=== PATIENT | female | born 1995 | race Caucasian/White ===

== ENCOUNTER 2017-06-06 02:05 | Emergency (ER) | payer SELFPAY ==
[2017-06-06 02:25] VITALS: BP 123/70
[2017-06-06] MEDS ORDERED: ERYTHROMYCIN 0.5% OPH OINT 1 GM UNIT DOSE OU ONE (04:59)
--- NOTE | 2017-06-06 05:09 | ER Document Report ---
ED Eye Complaint - General Chief Complaint: Eye Problem Stated Complaint: RED EYES/DRAINAGE Time Seen by Provider: 06/06/17 04:48 Mode of Arrival: Ambulatory Information source: Patient Notes: 21-year-old presents to ED for red eyes with greenish drainage for about a week. She states she went to her primary doctor they gave her some antibiotics and some eyedrops and she finished these but the eyes have not gotten any better. She states she did not follow-up with her primary doctor or with an eye doctor. States she smokes a pack and a half a day. TRAVEL OUTSIDE OF THE [place] IN LAST 30 DAYS: No - HPI Onset: Last week Eye location: Bilateral Injury: No Quality of pain: Burning Severity: Mild Pain Level: 2 Safety glasses worn: No Contact lenses worn: No Associated symptoms: Burning, Pain, Redness, Matting - Related Data Allergies/Adverse Reactions: acetaminophen [From Tylenol] Adverse Reaction (Verified 05/13/16 04:48) Past Medical History - General Information source: Patient - Social History Smoking Status: Current Every Day Smoker Cigarette use (# per day): Yes - 1-1/2 packs per day Chew tobacco use (# tins/day): No Smoking Education Provided: Yes - Less than 2 minutes Frequency of alcohol use: None Drug Abuse: None Lives with: Parents Family History: Arthritis, Malignancy Patient has suicidal ideation: No Patient has homicidal ideation: No - Past Medical History Cardiac Medical History: Reports: None Pulmonary Medical History: Reports: None EENT Medical History: Reports: None Neurological Medical History: Reports: Hx Seizures Endocrine Medical History: Reports: None Renal/ Medical History: Reports: Hx Pelvic Inflammatory Disease Malignancy Medical History: Reports: None GI Medical History: Reports: Hx Hepatitis - C Musculoskeltal Medical History: Reports None Skin Medical History: Reports None Psychiatric Medical History: Reports: Hx Depression Traumatic Medical History: Reports: None Infectious Medical History: Reports: Hx Hepatitis - C Surgical Hx: Negative Past Surgical History: Reports: None - Immunizations Immunizations up to date: No Hx Diphtheria, Pertussis, Tetanus Vaccination: No Review of Systems - Review of Systems Constitutional: No symptoms reported EENT: Eye pain, Eye discharge Cardiovascular: No symptoms reported Respiratory: No symptoms reported Gastrointestinal: No symptoms reported Genitourinary: No symptoms reported Female Genitourinary: No symptoms reported Musculoskeletal: No symptoms reported Skin: No symptoms reported Hematologic/Lymphatic: No symptoms reported Neurological/Psychological: No symptoms reported Physical Exam - Vital signs Vitals: Temp Pulse Resp BP Pulse Ox 97.6 F 76 18 123/70 99 06/06/17 02:06/06/17 02:06/06/17 02:06/06/17 02:06/06/17 02:24 Interpretation: Normal - General General appearance: Appears well, Alert - HEENT Head: Normocephalic, Atraumatic Eyes: Normal Conjunctiva: Injected, Purulent discharge Cornea: Normal. No: Flourescein stain uptake Extraocular movements intact: Yes Eyelashes: Matted Pupils: PERRL Ears: Normal External canal: Normal Tympanic membrane: Normal Sinus: Normal Nasal: Normal Mouth/Lips: Normal Mucous membranes: Normal Pharynx: Normal Neck: Normal - Respiratory Respiratory status: No respiratory distress Chest status: Nontender Breath sounds: Normal Chest palpation: Normal - Cardiovascular Rhythm: Regular Heart sounds: Normal auscultation Murmur: No - Abdominal Inspection: Normal Distension: No distension Bowel sounds: Normal Tenderness: Nontender Organomegaly: No organomegaly - Back Back: Normal, Nontender - Extremities General upper extremity: Normal inspection, Nontender, Normal color, Normal ROM , Normal temperature General lower extremity: Normal inspection, Nontender, Normal color, Normal ROM , Normal temperature, Normal weight bearing. No: Cee's sign - Neurological Neuro grossly intact: Yes Cognition: Normal Orientation: AAOx4 [place] Coma Scale Eye Opening: Spontaneous [place] Coma Scale Verbal: Oriented [place] Coma Scale Motor: Obeys Commands [place] Coma Scale Total: 15 Speech: Normal Motor strength normal: LUE, RUE, LLE, RLE Sensory: Normal - Psychological Associated symptoms: Normal affect, Normal mood - Skin Skin Temperature: Warm Skin Moisture: Dry Skin Color: Normal Course - Vital Signs Vital signs: Temp Pulse Resp BP Pulse Ox 97.6 F 76 18 123/70 99 06/06/17 02:06/06/17 02:06/06/17 02:06/06/17 02:06/06/17 02:24 Discharge - Discharge Clinical Impression: Acute conjunctivitis, bilateral Qualifiers: Acute conjunctivitis type: unspecified Qualified Code(s): H10.33 - Unspecified acute conjunctivitis, bilateral Condition: Stable Disposition: HOME, SELF-CARE Additional Instructions: CONJUNCTIVITIS: You have an infection in your eye, commonly known as "pink eye." Conjunctivitis causes redness, mild discomfort, itching, and mattering on the eyelids. It is very contagious, so you must be careful to wash your hands after touching your face so you don't pass the infection on to others. Conjunctivitis is caused by both viruses and bacteria. It usually responds quickly to treatment with antibiotic drops. These should be placed in the eye as prescribed (usually every three to four hours while you're awake). If you wear contact lenses, don't put them in your eyes until the infection is cleared and you are no longer using the drops (unless your doctor advises you otherwise). Should you develop increasing eye pain, severe swelling, decreased vision, or fail to improve as expected, please return for re-examination. Erythromycin You have been prescribed an antibiotic of the erythromycin class. This is an ointment that needs to go into both eyes every 3 hours while awake for the next 6 days. Please be sure to use this ointment as prescribed every 3 hours while awake. Please follow-up with the respiratory therapy technician or eye doctor on Wednesday. ANTIBIOTIC THERAPY: You have been given an antibiotic prescription. It's important that you take all the medication, unless instructed otherwise by your physician. Failure to complete the entire course can result in relapse of your condition. Common side effects of antibiotics include nausea, intestinal cramping, or diarrhea. Women may develop vaginal yeast infections, and babies can get yeast (thrush) in the mouth following the use of antibiotics. Contact your physician if you develop significant side effects from this medication. Allergy to this antibiotic can result in hives, wheezing, faintness, or itching. If symptoms of allergy occur, stop the medication and call the doctor. FOLLOW-UP CARE: If you have been referred to a physician for follow-up care, call the physician s office for an appointment as you were instructed or within the next two days. If you experience worsening or a significant change in your symptoms, notify the physician immediately or return to the Emergency Department at any time for re-evaluation. Prescriptions: Erythromycin Base [E-Mycin 0.5% Oph Oint 1 gm Unit Dose] 1 applic BTH_EYE Q3HWA 6 Days Referrals: LILIANA JONES PA-C [Primary Care Provider] - Follow up as needed
== END 2017-06-06 05:00 | disposition home or self-care (01) ==
LOC: ER 02:05
DX: H10.33 Unspecified acute conjunctivitis, bilateral (principal); F17.210 Nicotine dependence, cigarettes, uncomplicated; Z71.6 Tobacco abuse counseling
CPT/HCPCS: 99282

== ENCOUNTER 2017-08-13 13:19 | Emergency (ER) | payer OTHER ==
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
[2017-08-13] MEDS ORDERED: DIPH/PERTUSS(ACELL)/TETANUS VAC/PF 0.5 ML SYR (>=10YO) IM ONE (13:30)
[2017-08-13 13:48] LABS: HEMATOCRIT 43.1 % (36.0-47.0); HEMOGLOBIN 14.4 g/dL (12.0-15.5); HGB HCT DIFFERENCE 0.1; MEAN CORPUSCULAR HEMOGLOBIN 28.2 pg (27.0-33.4); MEAN CORPUSCULAR HGB CONC 33.3 g/dL (32.0-36.0); MEAN CORPUSCULAR VOLUME 85 fl (80-97); RED BLOOD COUNT 5.09 10^6/uL (3.72-5.28); RED CELL DISTRIBUTION WIDTH 13.1 % (11.5-14.0)
[2017-08-13 13:51] LABS: PROTHROMBIN TIME 13.8 SEC (11.4-15.4)
[2017-08-13 13:52] LABS: WHITE BLOOD COUNT 31.2 10^3/uL (4.0-10.5)
[2017-08-13 14:01] LABS: ALANINE AMINOTRANSFERASE 38 U/L (9-52); ALBUMIN 4.3 g/dL (3.5-5.0); ALKALINE PHOSPHATASE 105 U/L (38-126); ANION GAP 11 (5-19); ASPARTATE AMINO TRANSFERASE 86 U/L (14-36); BILIRUBIN,DIRECT 0.4 mg/dL (0.0-0.4); BLOOD UREA NITROGEN 8 mg/dL (7-20); CALCIUM 10.4 mg/dL (8.4-10.2); CARBON DIOXIDE 21 mmol/L (22-30); CHLORIDE 109 mmol/L (98-107); CREATININE RESULT 0.73 mg/dL (0.52-1.25); GLUCOSE 142 mg/dL (75-110); POTASSIUM 3.9 mmol/L (3.6-5.0); SODIUM 141.2 mmol/L (137-145); TOTAL PROTEIN 7.6 g/dL (6.3-8.2)
[2017-08-13 14:02] LABS: ALCOHOL < 10 mg/dL (NONE DETECTED)
[2017-08-13 14:12] LABS: BAND NEUTROPHILS % (MANUAL) 2 % (3-5); BASOPHILS % (MANUAL) 0 % (0-2); EOSINOPHILS % (MANUAL) 0 % (0-6); LYMPHOCYTES % (MANUAL) 14 % (13-45); RBC MORPHOLOGY COMMENT NORMO-CYTIC/CHROMIC; TOTAL CELLS COUNTED 100; TOXIC VACUOLATION PRESENT
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
[2017-08-13] MEDS ORDERED: HYDROMORPHONE HCL INJ/PF 2 MG/ML AMPULE IV ONE ×2 (14:49→15:26)
[2017-08-13 16:10] VITALS: BP 107/72
[2017-08-16 14:12] LABS: PATH REVIEW PATHOLOGIST REVIEWED
== END 2017-08-13 16:22 | disposition short-term general hospital (02) ==
LOC: ER 13:19
DX: S32.020A Wedge compression fracture of second lumbar vertebra, initial encounter for closed fracture (principal); S32.10XA Unspecified fracture of sacrum, initial encounter for closed fracture; S22.069A Unspecified fracture of T7-T8 vertebra, initial encounter for closed fracture; S22.079A Unspecified fracture of T9-T10 vertebra, initial encounter for closed fracture; S51.812A Laceration without foreign body of left forearm, initial encounter; S61.412A Laceration without foreign body of left hand, initial encounter; S91.116A Laceration without foreign body of unspecified lesser toe(s) without damage to nail, initial encounter; S41.111A Laceration without foreign body of right upper arm, initial encounter; S71.112A Laceration without foreign body, left thigh, initial encounter; S81.812A Laceration without foreign body, left lower leg, initial encounter; S30.811A Abrasion of abdominal wall, initial encounter; S50.311A Abrasion of right elbow, initial encounter; F10.129 Alcohol abuse with intoxication, unspecified; F19.90 Other psychoactive substance use, unspecified, uncomplicated; V89.0XXA Person injured in unspecified motor-vehicle accident, nontraffic, initial encounter; Z88.6 Allergy status to analgesic agent; Z23 Encounter for immunization
CPT/HCPCS: 96376; 99285; 90471; 96374; 36415; 80307; 84703; 85025; 85610; 80053; 73630; 73130; 70450; 71260; 72125; 74177; 90715; J1170

== ENCOUNTER 2017-08-22 07:59 | Inpatient (IN) | payer OTHER ==
[2017-08-22] MEDS ORDERED: DAPTOMYCIN INJ 500 MG VIAL IV ONE (10:47)
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
[2017-08-22] MEDS: OXYCODONE HCL IR 5 MG TABLET PO PRN ×3 (11:59→22:09)
[2017-08-22] MEDS ORDERED: INFLUENZA ADLT QUAD (36MOS+) 2017-18 VAC 0.5 ML SYR IM PRN (14:16)
[2017-08-22] MEDS ORDERED: NICOTINE 21 MG/24 HR PATCH.TD24 TD ONE (15:00)
[2017-08-22] MEDS: METHADONE HCL 10 MG TABLET PO SCH ×2 (15:03→22:09)
[2017-08-22] MEDS ORDERED: ENOXAPARIN SODIUM INJ 40 MG/0.4 ML DISP.SYRIN SUBCUT ONE (15:30)
[2017-08-22 16:14] LABS: CREATININE RESULT 0.52 mg/dL (0.52-1.25)
[2017-08-22] MEDS: DAPTOMYCIN 300 MG in NORMAL SALINE 50 ML IV SCH (17:13)
[2017-08-23] MEDS: OXYCODONE HCL IR 5 MG TABLET PO PRN ×5 (05:27→21:49)
[2017-08-23] MEDS: METHADONE HCL 10 MG TABLET PO SCH ×3 (05:27→21:49)
[2017-08-23 07:46] LABS: ABSOLUTE BASOPHILS # (AUTO) 0.1 10^3/uL (0.0-0.2); ABSOLUTE EOSINOPHILS # (AUTO) 0.3 10^3/uL (0.0-0.6); ABSOLUTE LYMPHOCYTES (AUTO) 2.8 10^3/uL (0.5-4.7); ABSOLUTE MONOCYTES (AUTO) 0.5 10^3/uL (0.1-1.4); BASOPHILS % (AUTO) 0.8 % (0-2); EOSINOPHILS % (AUTO) 3.4 % (0-6); HEMATOCRIT 28.3 % (36.0-47.0); HEMOGLOBIN 9.5 g/dL (12.0-15.5); HGB HCT DIFFERENCE 0.2; LYMPHOCYTES % (AUTO) 32.3 % (13-45); MEAN CORPUSCULAR HEMOGLOBIN 28.4 pg (27.0-33.4); MEAN CORPUSCULAR HGB CONC 33.7 g/dL (32.0-36.0); MEAN CORPUSCULAR VOLUME 84 fl (80-97); RED BLOOD COUNT 3.36 10^6/uL (3.72-5.28); RED CELL DISTRIBUTION WIDTH 12.8 % (11.5-14.0); SEGMENTED NEUTROPHILS % (AUTO) 57.5 % (42-78); WHITE BLOOD COUNT 8.7 10^3/uL (4.0-10.5)
[2017-08-23 08:30] LABS: ALANINE AMINOTRANSFERASE 21 U/L (9-52); ALBUMIN 3.2 g/dL (3.5-5.0); ALKALINE PHOSPHATASE 83 U/L (38-126); ANION GAP 10 (5-19); ASPARTATE AMINO TRANSFERASE 16 U/L (14-36); BILIRUBIN,DIRECT 0.3 mg/dL (0.0-0.4); BILIRUBIN,TOTAL 0.5 mg/dL (0.2-1.3); BLOOD UREA NITROGEN 10 mg/dL (7-20); CALCIUM 9.2 mg/dL (8.4-10.2); CARBON DIOXIDE 28 mmol/L (22-30); CHLORIDE 100 mmol/L (98-107); CREATININE RESULT 0.54 mg/dL (0.52-1.25); GLUCOSE 100 mg/dL (75-110); MAGNESIUM 1.9 mg/dL (1.6-2.3); PHOSPHORUS 5.5 mg/dL (2.5-4.5); POTASSIUM 4.6 mmol/L (3.6-5.0); SODIUM 138.3 mmol/L (137-145); TOTAL PROTEIN 6.4 g/dL (6.3-8.2)
[2017-08-23] MEDS: NICOTINE 21 MG/24 HR PATCH.TD24 TD SCH (10:01)
[2017-08-23] MEDS: ENOXAPARIN SODIUM INJ 40 MG/0.4 ML DISP.SYRIN SUBCUT SCH (10:01)
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
[2017-08-23] MEDS: DAPTOMYCIN 300 MG in NORMAL SALINE 50 ML IV SCH (15:49)
[2017-08-24] MEDS: OXYCODONE HCL IR 5 MG TABLET PO PRN ×6 (01:23→21:48)
[2017-08-24 05:11] LABS: ABSOLUTE BASOPHILS # (AUTO) 0.1 10^3/uL (0.0-0.2); ABSOLUTE EOSINOPHILS # (AUTO) 0.4 10^3/uL (0.0-0.6); ABSOLUTE LYMPHOCYTES (AUTO) 3.4 10^3/uL (0.5-4.7); ABSOLUTE MONOCYTES (AUTO) 0.7 10^3/uL (0.1-1.4); BASOPHILS % (AUTO) 0.6 % (0-2); HEMATOCRIT 29.6 % (36.0-47.0); HEMOGLOBIN 10.2 g/dL (12.0-15.5); LYMPHOCYTES % (AUTO) 32.1 % (13-45); MEAN CORPUSCULAR HEMOGLOBIN 29.1 pg (27.0-33.4); MEAN CORPUSCULAR HGB CONC 34.4 g/dL (32.0-36.0); MEAN CORPUSCULAR VOLUME 84 fl (80-97); MONOCYTES % (AUTO) 6.9 % (3-13); RED CELL DISTRIBUTION WIDTH 12.8 % (11.5-14.0); SEGMENTED NEUTROPHILS % (AUTO) 56.4 % (42-78); WHITE BLOOD COUNT 10.6 10^3/uL (4.0-10.5)
[2017-08-24 05:22] LABS: ANION GAP 8 (5-19); BLOOD UREA NITROGEN 12 mg/dL (7-20); CALCIUM 9.4 mg/dL (8.4-10.2); CARBON DIOXIDE 33 mmol/L (22-30); CHLORIDE 100 mmol/L (98-107); CREATINE KINASE 40 U/L (30-135); CREATININE RESULT 0.62 mg/dL (0.52-1.25); GLUCOSE 91 mg/dL (75-110); POTASSIUM 4.4 mmol/L (3.6-5.0); SODIUM 141.1 mmol/L (137-145)
[2017-08-24] MEDS: METHADONE HCL 10 MG TABLET PO SCH ×3 (05:28→21:48)
[2017-08-24] MEDS: ENOXAPARIN SODIUM INJ 40 MG/0.4 ML DISP.SYRIN SUBCUT SCH (09:48)
[2017-08-24] MEDS: NICOTINE 21 MG/24 HR PATCH.TD24 TD SCH (09:48)
[2017-08-24] MEDS: DAPTOMYCIN 300 MG in NORMAL SALINE 50 ML IV SCH (16:52)
[2017-08-24] MEDS: CYCLOBENZAPRINE HCL 10 MG TABLET PO PRN (16:53)
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
[2017-08-25] MEDS: OXYCODONE HCL IR 5 MG TABLET PO PRN ×5 (06:06→21:56)
[2017-08-25] MEDS: METHADONE HCL 10 MG TABLET PO SCH ×3 (06:07→21:55)
[2017-08-25] MEDS: ENOXAPARIN SODIUM INJ 40 MG/0.4 ML DISP.SYRIN SUBCUT SCH (10:00)
[2017-08-25] MEDS: NICOTINE 21 MG/24 HR PATCH.TD24 TD SCH (10:00)
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
[2017-08-25] MEDS: CYCLOBENZAPRINE HCL 10 MG TABLET PO PRN ×2 (13:55→21:56)
[2017-08-25] MEDS: DAPTOMYCIN 300 MG in NORMAL SALINE 50 ML IV SCH (16:27)
[2017-08-26] MEDS: METHADONE HCL 10 MG TABLET PO SCH ×3 (06:02→22:24)
[2017-08-26] MEDS: CYCLOBENZAPRINE HCL 10 MG TABLET PO PRN ×3 (06:02→22:23)
[2017-08-26] MEDS: OXYCODONE HCL IR 5 MG TABLET PO PRN ×4 (06:02→22:22)
[2017-08-26] MEDS: NICOTINE 21 MG/24 HR PATCH.TD24 TD SCH (09:47)
[2017-08-26] MEDS: ENOXAPARIN SODIUM INJ 40 MG/0.4 ML DISP.SYRIN SUBCUT SCH (09:48)
--- NOTE | 2017-08-26 09:52 | RADIOLOGY REPORT (SQ) ---
EXAM DESCRIPTION: PICC INSERTION; FLUORO/CV PLACEMENT; U/S GUIDE FOR VASCULAR ACCESS COMPLETED DATE/TIME: 08/26/2017 9:32 am REASON FOR STUDY: IV drug user in need of 4 weeks antibiotics; IV ABX; IV ACCESS COMPARISON: CT chest 08/13/2017 FLUOROSCOPY TIME: Fluoro time 25 seconds 1 ultrasound and 1 digital chest images saved to PACS. TECHNIQUE: Fluoroscopic and ultrasound guided PICC placement. LIMITATIONS: None. PROCEDURE: After written consent and assessment were obtained, the patient was brought into the fluo roscopy room and place supine on the table. Ultrasound was used on the patient's left arm for PICC a ccess. The left arm was prepped and draped in a sterile fashion along with the ultrasound probe. The entry site was anesthetized with 1% lidocaine. A 21 gauge 7 cm needle was advanced through the skin a nd into the basilic vein under live ultrasound guidance. An ultrasound image was saved to PACS confi rming access site. A .018 guide wire was then inserted through the needle and into the venous system . The needle was the removed and an 11 blade scalpel was used to make a 1cm skin incision. A 5 fr pe el-away sheath was advanced over the wire and into the venous system. A measurement was then made usi ng the existing wire and live fluoroscopic guidance. The wire was then removed and the trimmed. The P ICC was advanced through the peel-away sheath and into the venous system. The peel-away sheath was re moved and the catheter was adhered to the patients arm with a stat lock. The catheter was then aspira vidhya and flushed and a sterile bandage was placed over the access site. A fluoroscopic spot image was saved to PACS confirming the catheter tip within the superior vena cava. IMPRESSION: SUCCESSFUL PLACEMENT OF A 5 FR DUAL LUMEN 38 CM PICC IN THE LEFT BASILIC VEIN. COMMENT: Patient medication list reviewed: Yes- Quality ID# [id number]:Eligible professional attests to doc umenting in the medical record they obtained, updated, or reviewed the patient's current medications. . Quality ID 145: Final reports for procedures using fluoroscopy that document radiation exposure joleen briana, or exposure time and number of fluorographic images (if radiation exposure indices are not avail able) Quality ID #76: The patient was prepped and draped using maximum sterile barrier technique including cap, mask, sterile gown, sterile gloves, a large sterile sheet, hand hygiene, and 2% Chlorhexidine fo r cutaneous antisepsis. When ultrasound is used, sterile ultrasound techniques are followed requiring sterile gel and sterile probes. TECHNICAL DOCUMENTATION: JOB ID: [id number] [employer]- All Rights Reserved
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
[2017-08-26] MEDS: DAPTOMYCIN 300 MG in NORMAL SALINE 50 ML IV SCH (17:15)
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
[2017-08-26] MEDS: NORMAL SALINE 10 ML SDV (SCHEDULED) IV SCH (22:26)
[2017-08-27] MEDS: METHADONE HCL 10 MG TABLET PO SCH ×3 (06:28→21:16)
[2017-08-27] MEDS: OXYCODONE HCL IR 5 MG TABLET PO PRN ×5 (06:29→22:03)
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
[2017-08-27 09:11] LABS: ABSOLUTE EOSINOPHILS # (AUTO) 0.1 10^3/uL (0.0-0.6); ABSOLUTE LYMPHOCYTES (AUTO) 1.8 10^3/uL (0.5-4.7); ABSOLUTE MONOCYTES (AUTO) 0.9 10^3/uL (0.1-1.4); ABSOLUTE NEUT (AUTO) 6.5 10^3/uL (1.7-8.2); BASOPHILS % (AUTO) 0.4 % (0-2); EOSINOPHILS % (AUTO) 1.2 % (0-6); HEMATOCRIT 26.3 % (36.0-47.0); HGB HCT DIFFERENCE 0.7; MEAN CORPUSCULAR HEMOGLOBIN 28.9 pg (27.0-33.4); MEAN CORPUSCULAR HGB CONC 34.3 g/dL (32.0-36.0); MEAN CORPUSCULAR VOLUME 84 fl (80-97); MONOCYTES % (AUTO) 9.6 % (3-13); RED BLOOD COUNT 3.12 10^6/uL (3.72-5.28); RED CELL DISTRIBUTION WIDTH 12.6 % (11.5-14.0); SEGMENTED NEUTROPHILS % (AUTO) 69.8 % (42-78); WHITE BLOOD COUNT 9.3 10^3/uL (4.0-10.5)
[2017-08-27] MEDS: ENOXAPARIN SODIUM INJ 40 MG/0.4 ML DISP.SYRIN SUBCUT SCH (10:42)
[2017-08-27] MEDS: NORMAL SALINE 10 ML SDV (SCHEDULED) IV SCH ×2 (10:42→21:16)
[2017-08-27] MEDS: CYCLOBENZAPRINE HCL 10 MG TABLET PO PRN ×2 (10:44→18:04)
[2017-08-27] MEDS: NICOTINE 21 MG/24 HR PATCH.TD24 TD SCH (11:51)
[2017-08-27] MEDS ORDERED: LORAZEPAM 1 MG TABLET PO ONE (11:57)
[2017-08-27 13:57] LABS: OTHER CRYSTALS NONE OBSERVED
[2017-08-27] MEDS ORDERED: DEXTROSE 50%-WATER 25 GM/50 ML DISP.SYRIN IV PRN ×2 (14:10)
[2017-08-27] MEDS ORDERED: DEXTROSE 40% GEL 15 GM TUBE PO PRN ×2 (14:10)
[2017-08-27] MEDS ORDERED: GLUCAGON,HUMAN RECOMB 1 MG INJ SUBCUT PRN (14:10)
[2017-08-27 14:16] LABS: FLUID TYPE SYNOVIAL
[2017-08-27 14:17] LABS: FLUID APPEARANCE TURBID
[2017-08-27 14:18] LABS: FLUID RBC AVERAGE 54.5; FLUID RBC DILUENT USED SALINE; FLUID RBC DILUTION FACTOR 20; FLUID RBC SIDE 1 59; FLUID RBC SIDE 2 50
[2017-08-27 14:19] LABS: TOTAL RBC SQUARES COUNTED FLD 225
[2017-08-27] MEDS: DAPTOMYCIN 300 MG in NORMAL SALINE 50 ML IV SCH (15:16)
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
--- NOTE | 2017-08-27 23:40 | Progress Note ---
Provider Note Provider Note: Patient seen and evaluated w/ PA. Continues to have elbow discomfort w/ motion. PE: Right elbow: Pain w/ terminal flexion and extension. Notable joint swelling w/ warmth. Tenderness to palpation along the joint line. no open wound. pain with pronation and supination. the patient makes a full and supple fist with flexion to the distal palmar crease. there is full active extension of all digits at the mcp and ip joints. epl and fpl are intact. extrinsic digital extensors and digital flexors are intact procedure note; today we discussed findings on physical examination treatment options. given the evidence of intra-articular effusion on radiographs and patient's refusal of mri i have recommended proceeding with joint aspiration. area was prepped with alcohol and 18-gauge needle was inserted into the soft spot between the lateral epicondyle, olecranon and radial head 10 cc of turbid appearing fluid was obtained and sent for cell count with differential, culture and sensitivity. A/P septic right elbow: findings demonstrate greater than 100,000 wbcs with neutrophil percent 96 are likely indicative of underlying septic joint. patient has been receiving appropriate antibiotics. given these findings on aspiration i feel patient will require operative intervention which included arthroscopic irrigation and debridement right elbow. risks and benefits of the surgical procedure have been explained to the patient including continued pain, stiffness, posttraumatic arthritis knee for future surgical intervention, neurovascular injury. patient verbalized understanding and consented for operative treatment.
[2017-08-28] MEDS: OXYCODONE HCL IR 5 MG TABLET PO PRN ×6 (02:09→22:23)
[2017-08-28] MEDS: CYCLOBENZAPRINE HCL 10 MG TABLET PO PRN ×3 (02:09→18:27)
[2017-08-28] MEDS: METHADONE HCL 10 MG TABLET PO SCH ×3 (06:20→22:23)
[2017-08-28] MEDS ORDERED: LIDOCAINE 2% INJ-PF (20 MG/ML) 10 ML AMPUL ONE (07:51)
[2017-08-28] MEDS ORDERED: DEXAMETHASONE SOD PHOSPHATE INJ 4 MG/1 ML VIAL ONE (07:51)
[2017-08-28] MEDS ORDERED: KETOROLAC TROMETHAMINE 60 MG/2 ML SDV ONE (07:51)
[2017-08-28] MEDS ORDERED: METOCLOPRAMIDE HCL INJ/PF 10 MG/2 ML SDV ONE (07:51)
[2017-08-28] MEDS ORDERED: ONDANSETRON HCL INJ/PF 4 MG/2 ML SDV ONE (07:51)
[2017-08-28] MEDS ORDERED: KETAMINE HCL INJ 500 MG/10 ML VIAL ONE (07:54)
[2017-08-28] MEDS ORDERED: FENTANYL CITRATE INJ/PF 100 MCG/2 ML AMPUL ONE (07:54)
[2017-08-28] MEDS ORDERED: EPHEDRINE SULFATE INJ 50 MG/1 ML AMPULE ONE (07:55)
[2017-08-28] MEDS ORDERED: MIDAZOLAM 2 MG/2 ML INJ ONE (07:55)
[2017-08-28] MEDS ORDERED: DEXMEDETOMIDINE INJ 80 MCG/20 ML VIAL IV ONE (07:55)
[2017-08-28] MEDS ORDERED: PROPOFOL INJ 200 MG/20 ML VIAL IV ONE (07:55)
[2017-08-28] MEDS ORDERED: BUPIVACAINE HCL 0.5 % INJ/PF 30 ML SDV ONE (08:25)
[2017-08-28] MEDS ORDERED: BACITRACIN INJ 50,000 UNIT VIAL ONE (08:25)
[2017-08-28] MEDS ORDERED: MORPHINE SULFATE 10 MG/ML INJ IV PRN (09:08)
[2017-08-28] MEDS ORDERED: DIPHENHYDRAMINE HCL 50 MG/ML VIAL IV PRN (09:08)
[2017-08-28] MEDS ORDERED: MEPERIDINE HCL/PF INJ 25 MG/1 ML DISP.SYRIN IV PRN (09:08)
[2017-08-28] MEDS ORDERED: PROMETHAZINE HCL INJ 25 MG/1 ML VIAL IV PRN ×2 (09:08)
[2017-08-28] MEDS ORDERED: ONDANSETRON HCL INJ/PF 4 MG/2 ML SDV IV PRN (09:08)
[2017-08-28] MEDS ORDERED: FENTANYL CITRATE INJ/PF 100 MCG/2 ML AMPUL IV PRN ×3 (09:08)
--- NOTE | 2017-08-28 09:27 | Operative Report ---
Operative Report DATE OF SURGERY: 08/28/17 PREOPERATIVE DIAGNOSIS: Right Elbow Septic Arthritis POSTOPERATIVE DIAGNOSIS: Right Elbow Septic Arthritis OPERATION: Arthroscopic Right Elbow Septic Arthritis SURGEON: CRISTIANA CAPUTO ANESTHESIA: GA COMPLICATIONS: None ESTIMATED BLOOD LOSS: Minimal PROCEDURE: Indication for Above Procedure: 21-year-old female with recent diagnosis of endocarditis. She was transferred to our hospital for IV antibiotics as per infectious disease at [facility]. Over the past few days she began having increasing pain in her right elbow. Subsequently aspiration was performed which demonstrated leukocytosis of the aspirate and given her history of IV drug abuse and endocarditis there is high concern for possible septic arthritis. After discussing treatment options with the patient I recommended proceeding with arthroscopic I&D of her right elbow. Risks and benefits were explained patient verbalized understanding consented for the procedure. Procedure In Detail: Patient was seen and evaluated in the preoperative holding area. The RIGHT upper extremity was initialized and marked. Patient currently receiving IV daptomycin for endocarditis. Patient was taken back to the operative room where transferred to the operative table and placed under general anesthesia. Once they were adequately anesthetized a nonsterile tourniquet was placed on the upper extremity patient was placed in the lateral decubitus position. Bilateral lower extremities were carefully padded and the nonoperative extremity padded as well. Cervical spine placed in a neutral position. A surgical team debriefing was performed ensuring all instrumentation was available, the surgical procedure was discussed with possible concerns reviewed. The upper extremity was prepped with ChloraPrep and draped in a sterile fashion. A timeout was done identifying correct patient, procedure and extremity everyone in attendance agree with this and verbalized no concerns. The extremity was elevated the tourniquet was inflated to 250 mmHg. Elbow was insufflated to the soft spot with 20 cc of saline. Medial portal was established 2 cm proximal to the medial epicondyle and 1 cm anterior to medial intramuscular septum. Blunt dissection was performed with a hemostat and the arthroscopic camera inserted into the elbow joint. Expiration demonstrated some mild fraying along the chondral surface. No chondral defect appreciated. Notable synovitis along the ulnohumeral joint. Spinal needle was then utilized to establish a lateral portal 2 cm proximal to the lateral epicondyle 1 cm anteriorly. Arthroscopic she was introduced into the joint and a partial synovectomy was performed. Chondroplasty was performed along the proximal to the radiocapitellar joint. No gross purulence was appreciated. I then placed the arthroscopic camera laterally. Inspected the capitellum there is no evidence of degenerative change on the trochlea or coronoid. 6 L of saline was utilized for irrigation. Once again the arthroscopic camera was placed medially and a 10 Rex drain was placed to the lateral portal. This was secured with 4-0 nylon suture. Portals were closed with interrupted 4-0 nylon. 30 cc of 0.5% Marcaine with epinephrine was injected for postoperative pain control. Sponge counts, instrument counts, needle counts counts were correct. Patient was then awoken from anesthesia. Transferred from the operating room table to the operating room stretcher. There was no intraoperative complications patient tolerated procedure well stable to PACU. Postoperative plan: Patient will continue on IV antibiotics for a total of 4 weeks.
[2017-08-28] MEDS: NICOTINE 21 MG/24 HR PATCH.TD24 TD SCH (10:54)
[2017-08-28] MEDS: ENOXAPARIN SODIUM INJ 40 MG/0.4 ML DISP.SYRIN SUBCUT SCH (10:56)
[2017-08-28] MEDS: NORMAL SALINE 10 ML SDV (SCHEDULED) IV SCH ×2 (10:56→22:25)
[2017-08-28] MEDS: DAPTOMYCIN 300 MG in NORMAL SALINE 50 ML IV SCH (15:11)
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
[2017-08-29] MEDS: OXYCODONE HCL IR 5 MG TABLET PO PRN ×5 (02:32→22:45)
[2017-08-29] MEDS: CYCLOBENZAPRINE HCL 10 MG TABLET PO PRN ×3 (02:32→11:12)
[2017-08-29] MEDS: METHADONE HCL 10 MG TABLET PO SCH ×2 (06:56→22:45)
--- NOTE | 2017-08-29 08:28 | PDOC PROGRESS REPORT ---
Subjective Progress Note for:: 08/29/17 Subjective:: Patient notes all of her pain continues to worsen. But notes the pain in the elbow has somewhat improved. Denies numbness or tingling. Denies fever chills or sweats. Physical Exam Vital Signs: Temp Pulse Resp BP Pulse Ox 97.9 F 76 14 113/53 L 98 08/29/17 07:41 08/29/17 07:41 08/29/17 07:41 08/29/17 07:41 08/29/17 07:41 Intake & Output 08/28/17 08/29/17 08/30/17 06:59 06:59 06:59 Intake Total 1696 9025 Output Total 5525 Balance 1696 3480 Weight 70.4 kg 73.4 kg Musculoskeletal exam: PRESENT: other - Right elbow: Dressing clean/dry/intact no erythema or drainage. Elbow range of motion 30-110 without discomfort. No significant swelling of the forearm appreciated. Full wrist flexion/ extension. Patient able to make full composite fist. EPL/FPL intact. Minimal drainage from the postoperative drain Results Laboratory Results: 08/27/17 08:50 08/24/17 04:39 08/23/17 11:37 Blood Blood Culture - Final NO GROWTH IN 5 DAYS 08/23/17 08:16 Blood Blood Culture - Final NO GROWTH IN 5 DAYS 08/24/17 04:39 Creatine Kinase 40 Impressions: Elbow X-Ray 08/26/17 00:00 IMPRESSION: No fracture is seen. However, there is a joint effusion. Recommend conservative measures and repeat imaging as clinically indicated. Guidance Fluoroscopy 08/26/17 00:00 IMPRESSION: SUCCESSFUL PLACEMENT OF A 5 FR DUAL LUMEN 38 CM PICC IN THE LEFT BASILIC VEIN. Interventional Vascular Procedure 08/26/17 00:00 IMPRESSION: SUCCESSFUL PLACEMENT OF A 5 FR DUAL LUMEN 38 CM PICC IN THE LEFT BASILIC VEIN. PICC Line Insertion 08/26/17 00:00 IMPRESSION: SUCCESSFUL PLACEMENT OF A 5 FR DUAL LUMEN 38 CM PICC IN THE LEFT BASILIC VEIN. Assessment & Plan - Diagnosis (1) Septic arthritis of elbow, right Qualifiers: Septic arthritis organism: due to unspecified organism Qualified Code(s): M00.9 - Pyogenic arthritis, unspecified Is this a current diagnosis for this admission?: Yes Plan: Patient is postop day #1 status post arthroscopic I&D right elbow. Her range of motion appears to have improved. At this point she will continue on her current IV antibiotic regimen and transition to p.o. antibiotics once her previous endocarditis IV antibiotic regimen is complete. We will proceed with dressing change on postop day #2.
[2017-08-29] MEDS: NORMAL SALINE 10 ML SDV (SCHEDULED) IV SCH ×2 (10:20→22:45)
[2017-08-29] MEDS: NICOTINE 21 MG/24 HR PATCH.TD24 TD SCH (10:20)
[2017-08-29] MEDS: ENOXAPARIN SODIUM INJ 40 MG/0.4 ML DISP.SYRIN SUBCUT SCH (11:08)
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
[2017-08-29] MEDS ORDERED: METHADONE HCL 10 MG TABLET PO ONE (15:00)
[2017-08-29] MEDS: DAPTOMYCIN 300 MG in NORMAL SALINE 50 ML IV SCH (16:38)
[2017-08-30] MEDS: OXYCODONE HCL IR 5 MG TABLET PO PRN ×4 (06:04→20:40)
[2017-08-30] MEDS: CYCLOBENZAPRINE HCL 10 MG TABLET PO PRN ×2 (06:05→15:35)
[2017-08-30] MEDS: METHADONE HCL 10 MG TABLET PO SCH ×3 (06:05→21:32)
--- NOTE | 2017-08-30 07:48 | PDOC PROGRESS REPORT ---
Subjective Subjective:: Patient notes all of her pain continues to worsen. But notes the pain in the elbow has continues to show improvement. Denies numbness or tingling. Denies fever chills or sweats. Physical Exam Vital Signs: Temp Pulse Resp BP Pulse Ox 97.8 F 82 14 120/53 L 99 08/29/17 23:38 08/29/17 23:38 08/29/17 23:38 08/29/17 23:38 08/29/17 23:38 Intake & Output 08/29/17 08/30/17 08/31/17 06:59 06:59 06:59 Intake Total 9025 1460 Output Total 5545 0 Balance 3480 1460 Weight 73.4 kg 73.6 kg Musculoskeletal exam: PRESENT: other - Right elbow: Dressing change today. No erythema and minimal drainage from the LVE drain. Mild swelling. Elbow range of motion 20-110 without discomfort. Patient able to make full composite fist. EPL/FPL intact. Results Laboratory Results: 08/27/17 08:50 08/24/17 04:39 08/24/17 04:39 Creatine Kinase 40 Impressions: Elbow X-Ray 08/26/17 00:00 IMPRESSION: No fracture is seen. However, there is a joint effusion. Recommend conservative measures and repeat imaging as clinically indicated. Guidance Fluoroscopy 08/26/17 00:00 IMPRESSION: SUCCESSFUL PLACEMENT OF A 5 FR DUAL LUMEN 38 CM PICC IN THE LEFT BASILIC VEIN. Interventional Vascular Procedure 08/26/17 00:00 IMPRESSION: SUCCESSFUL PLACEMENT OF A 5 FR DUAL LUMEN 38 CM PICC IN THE LEFT BASILIC VEIN. PICC Line Insertion 08/26/17 00:00 IMPRESSION: SUCCESSFUL PLACEMENT OF A 5 FR DUAL LUMEN 38 CM PICC IN THE LEFT BASILIC VEIN. Assessment & Plan - Diagnosis (1) Septic arthritis of elbow, right Qualifiers: Septic arthritis organism: due to unspecified organism Qualified Code(s): M00.9 - Pyogenic arthritis, unspecified Is this a current diagnosis for this admission?: Yes Plan: Patient is postop day #1 status post arthroscopic I&D right elbow. #1 continue daptomycin IV until 09/19/17 would transition to p.o. antibiotics as outpatient for an additional 3 weeks.
[2017-08-30] MEDS: NORMAL SALINE 10 ML SDV (AFTER EACH USE) IV PRN ×2 (10:54→15:28)
[2017-08-30] MEDS: ENOXAPARIN SODIUM INJ 40 MG/0.4 ML DISP.SYRIN SUBCUT SCH (10:55)
[2017-08-30] MEDS: NICOTINE 21 MG/24 HR PATCH.TD24 TD SCH (10:55)
[2017-08-30] MEDS: NORMAL SALINE 10 ML SDV (SCHEDULED) IV SCH ×2 (10:55→21:32)
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
[2017-08-30] MEDS: DAPTOMYCIN 300 MG in NORMAL SALINE 50 ML IV SCH (15:27)
[2017-08-30 16:29] LABS: HEMATOCRIT 28.5 % (36.0-47.0); HEMOGLOBIN 9.7 g/dL (12.0-15.5); HGB HCT DIFFERENCE 0.6; MEAN CORPUSCULAR HEMOGLOBIN 28.4 pg (27.0-33.4); MEAN CORPUSCULAR HGB CONC 33.9 g/dL (32.0-36.0); MEAN CORPUSCULAR VOLUME 84 fl (80-97); RED CELL DISTRIBUTION WIDTH 13.1 % (11.5-14.0); WHITE BLOOD COUNT 8.5 10^3/uL (4.0-10.5)
[2017-08-31] MEDS: METHADONE HCL 10 MG TABLET PO SCH ×3 (06:34→21:12)
[2017-08-31] MEDS: OXYCODONE HCL IR 5 MG TABLET PO PRN ×3 (08:02→19:35)
[2017-08-31] MEDS: ENOXAPARIN SODIUM INJ 40 MG/0.4 ML DISP.SYRIN SUBCUT SCH (10:22)
[2017-08-31] MEDS: CYCLOBENZAPRINE HCL 10 MG TABLET PO PRN ×2 (10:25→21:18)
[2017-08-31] MEDS: NICOTINE 21 MG/24 HR PATCH.TD24 TD SCH (10:26)
[2017-08-31] MEDS: NORMAL SALINE 10 ML SDV (SCHEDULED) IV SCH ×2 (10:26→21:15)
[2017-08-31] MEDS: DAPTOMYCIN 300 MG in NORMAL SALINE 50 ML IV SCH (15:03)
[2017-08-31] MEDS: NORMAL SALINE 10 ML SDV (AFTER EACH USE) IV PRN ×2 (15:45→21:15)
[2017-08-31] MEDS ORDERED: ALBUTEROL SULFATE HFA (90 MCG/PUFF) 200 PUFF/8.5 GM MDI IH PRN (16:19)
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
--- NOTE | 2017-08-31 18:12 | PDOC PROGRESS REPORT ---
Subjective Subjective:: Patient states pain is improving however still requiring pain medication. She has been somewhat frustrated with nursing staff in terms of this. She denies fever chills or sweats. She has been doing elbow range of motion. Physical Exam Vital Signs: Temp Pulse Resp BP Pulse Ox 97.9 F 73 12 122/52 L 100 08/31/17 15:48 08/31/17 15:48 08/31/17 15:48 08/31/17 15:48 08/31/17 15:48 Intake & Output 08/30/17 08/31/17 09/01/17 06:59 06:59 06:59 Intake Total 1460 1580 Output Total 0 Balance 1460 1580 Weight 73.6 kg 73.8 kg Musculoskeletal exam: PRESENT: other - Right elbow: Dressing clean/dry/intact no erythema or drainage. No tracking erythema. No sensory deficits. Full wrist range of motion. EPL/FPL intact. Elbow range of motion 15-120 Results Laboratory Results: 08/30/17 16:11 08/24/17 04:39 08/27/17 13:00 Elbow - Joint, Right (Surgical) Gram Stain - Final 08/27/17 13:00 Elbow - Joint, Right (Surgical) Body Fluid Culture - Final NO AEROBIC OR ANAEROBIC ORGANISMS RECOVERED 08/24/17 04:39 Creatine Kinase 40 Impressions: Elbow X-Ray 08/26/17 00:00 IMPRESSION: No fracture is seen. However, there is a joint effusion. Recommend conservative measures and repeat imaging as clinically indicated. Guidance Fluoroscopy 08/26/17 00:00 IMPRESSION: SUCCESSFUL PLACEMENT OF A 5 FR DUAL LUMEN 38 CM PICC IN THE LEFT BASILIC VEIN. Interventional Vascular Procedure 08/26/17 00:00 IMPRESSION: SUCCESSFUL PLACEMENT OF A 5 FR DUAL LUMEN 38 CM PICC IN THE LEFT BASILIC VEIN. PICC Line Insertion 08/26/17 00:00 IMPRESSION: SUCCESSFUL PLACEMENT OF A 5 FR DUAL LUMEN 38 CM PICC IN THE LEFT BASILIC VEIN. Assessment & Plan - Diagnosis (1) Septic arthritis of elbow, right Qualifiers: Septic arthritis organism: due to unspecified organism Qualified Code(s): M00.9 - Pyogenic arthritis, unspecified Is this a current diagnosis for this admission?: Yes Plan: status post arthroscopic I&D right elbow. #1 continue daptomycin IV until 09/19/17 would transition to p.o. antibiotics as outpatient for an additional 3 weeks.
[2017-09-01] MEDS: OXYCODONE HCL IR 5 MG TABLET PO PRN ×5 (00:10→20:35)
[2017-09-01] MEDS: METHADONE HCL 10 MG TABLET PO SCH ×3 (05:11→21:11)
[2017-09-01] MEDS: ENOXAPARIN SODIUM INJ 40 MG/0.4 ML DISP.SYRIN SUBCUT SCH (09:06)
[2017-09-01] MEDS: NICOTINE 21 MG/24 HR PATCH.TD24 TD SCH (09:13)
[2017-09-01] MEDS: NORMAL SALINE 10 ML SDV (SCHEDULED) IV SCH ×2 (09:13→21:15)
[2017-09-01] MEDS: CYCLOBENZAPRINE HCL 10 MG TABLET PO PRN ×2 (09:13→18:16)
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
[2017-09-01] MEDS: DAPTOMYCIN 300 MG in NORMAL SALINE 50 ML IV SCH (15:53)
[2017-09-01] MEDS: NORMAL SALINE 10 ML SDV (AFTER EACH USE) IV PRN (16:37)
[2017-09-02] MEDS: CYCLOBENZAPRINE HCL 10 MG TABLET PO PRN ×3 (02:07→21:08)
[2017-09-02] MEDS: OXYCODONE HCL IR 5 MG TABLET PO PRN ×5 (02:07→20:07)
[2017-09-02] MEDS: METHADONE HCL 10 MG TABLET PO SCH ×3 (06:08→21:08)
[2017-09-02 06:39] LABS: HEMATOCRIT 30.6 % (36.0-47.0); HEMOGLOBIN 10.2 g/dL (12.0-15.5); MEAN CORPUSCULAR HGB CONC 33.5 g/dL (32.0-36.0); MEAN CORPUSCULAR VOLUME 84 fl (80-97); RED BLOOD COUNT 3.65 10^6/uL (3.72-5.28); RED CELL DISTRIBUTION WIDTH 13.1 % (11.5-14.0); WHITE BLOOD COUNT 7.6 10^3/uL (4.0-10.5)
[2017-09-02 06:44] LABS: ALANINE AMINOTRANSFERASE 26 U/L (9-52); ALBUMIN 3.5 g/dL (3.5-5.0); ALKALINE PHOSPHATASE 109 U/L (38-126); ASPARTATE AMINO TRANSFERASE 16 U/L (14-36); BILIRUBIN,DIRECT 0.3 mg/dL (0.0-0.4); BILIRUBIN,TOTAL 0.3 mg/dL (0.2-1.3); TOTAL PROTEIN 7.5 g/dL (6.3-8.2)
[2017-09-02] MEDS: ENOXAPARIN SODIUM INJ 40 MG/0.4 ML DISP.SYRIN SUBCUT SCH (10:10)
[2017-09-02] MEDS: NORMAL SALINE 10 ML SDV (SCHEDULED) IV SCH ×2 (10:20→21:08)
[2017-09-02] MEDS: NICOTINE 21 MG/24 HR PATCH.TD24 TD SCH (10:21)
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
[2017-09-02] MEDS: DAPTOMYCIN 300 MG in NORMAL SALINE 50 ML IV SCH (15:22)
[2017-09-02] MEDS: NORMAL SALINE 10 ML SDV (AFTER EACH USE) IV PRN (16:05)
[2017-09-03] MEDS: OXYCODONE HCL IR 5 MG TABLET PO PRN ×4 (02:40→23:19)
[2017-09-03] MEDS: METHADONE HCL 10 MG TABLET PO SCH ×3 (06:06→21:07)
[2017-09-03] MEDS ORDERED: ALBUTEROL SULFATE HFA (90 MCG/PUFF) 200 PUFF/8.5 GM MDI IH PRN (09:16)
[2017-09-03] MEDS: ENOXAPARIN SODIUM INJ 40 MG/0.4 ML DISP.SYRIN SUBCUT SCH (10:14)
[2017-09-03] MEDS: NORMAL SALINE 10 ML SDV (SCHEDULED) IV SCH ×2 (10:14→21:07)
[2017-09-03] MEDS: NICOTINE 21 MG/24 HR PATCH.TD24 TD SCH (10:14)
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
[2017-09-03] MEDS: CYCLOBENZAPRINE HCL 10 MG TABLET PO PRN ×2 (12:40→21:07)
[2017-09-03] MEDS: DAPTOMYCIN 300 MG in NORMAL SALINE 50 ML IV SCH (16:42)
[2017-09-04] MEDS: CYCLOBENZAPRINE HCL 10 MG TABLET PO PRN ×3 (05:36→22:14)
[2017-09-04] MEDS: OXYCODONE HCL IR 5 MG TABLET PO PRN ×4 (05:36→20:50)
[2017-09-04] MEDS: METHADONE HCL 10 MG TABLET PO SCH ×3 (06:32→21:22)
[2017-09-04] MEDS ORDERED: SENNOSIDES/DOCUSATE 8.6-50 MG 1 EACH TABLET PO PRN (09:38)
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
[2017-09-04] MEDS: ENOXAPARIN SODIUM INJ 40 MG/0.4 ML DISP.SYRIN SUBCUT SCH (10:19)
[2017-09-04] MEDS: NICOTINE 21 MG/24 HR PATCH.TD24 TD SCH (10:19)
[2017-09-04] MEDS: NORMAL SALINE 10 ML SDV (SCHEDULED) IV SCH ×2 (10:19→21:22)
[2017-09-04] MEDS: DAPTOMYCIN 300 MG in NORMAL SALINE 50 ML IV SCH (15:58)
[2017-09-05] MEDS: OXYCODONE HCL IR 5 MG TABLET PO PRN ×6 (01:00→23:54)
[2017-09-05] MEDS: METHADONE HCL 10 MG TABLET PO SCH ×2 (05:26→14:45)
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
[2017-09-05] MEDS: CYCLOBENZAPRINE HCL 10 MG TABLET PO PRN ×2 (09:13→18:48)
[2017-09-05] MEDS: NICOTINE 21 MG/24 HR PATCH.TD24 TD SCH (09:14)
[2017-09-05] MEDS: NORMAL SALINE 10 ML SDV (SCHEDULED) IV SCH ×2 (09:25→22:43)
[2017-09-05] MEDS: ENOXAPARIN SODIUM INJ 40 MG/0.4 ML DISP.SYRIN SUBCUT SCH (09:25)
[2017-09-05] MEDS: DAPTOMYCIN 300 MG in NORMAL SALINE 50 ML IV SCH (16:41)
[2017-09-05] MEDS ORDERED: METHADONE HCL 10 MG TABLET PO ONE (22:45)
[2017-09-06] MEDS: CYCLOBENZAPRINE HCL 10 MG TABLET PO PRN ×2 (02:36→17:30)
[2017-09-06] MEDS: METHADONE HCL 10 MG TABLET PO SCH ×3 (05:49→21:04)
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
[2017-09-06] MEDS: NORMAL SALINE 10 ML SDV (SCHEDULED) IV SCH ×2 (08:56→21:05)
[2017-09-06] MEDS: NICOTINE 21 MG/24 HR PATCH.TD24 TD SCH (08:56)
[2017-09-06] MEDS: OXYCODONE HCL IR 5 MG TABLET PO PRN ×3 (08:57→20:37)
[2017-09-06] MEDS: ENOXAPARIN SODIUM INJ 40 MG/0.4 ML DISP.SYRIN SUBCUT SCH (10:31)
[2017-09-06] MEDS: DAPTOMYCIN 300 MG in NORMAL SALINE 50 ML IV SCH (16:41)
[2017-09-07] MEDS: METHADONE HCL 10 MG TABLET PO SCH ×3 (05:26→22:08)
[2017-09-07] MEDS: CYCLOBENZAPRINE HCL 10 MG TABLET PO PRN ×2 (05:26→15:11)
[2017-09-07] MEDS: OXYCODONE HCL IR 5 MG TABLET PO PRN ×3 (08:57→19:59)
[2017-09-07] MEDS: NICOTINE 21 MG/24 HR PATCH.TD24 TD SCH (09:57)
[2017-09-07] MEDS: ENOXAPARIN SODIUM INJ 40 MG/0.4 ML DISP.SYRIN SUBCUT SCH (13:07)
[2017-09-07] MEDS: NORMAL SALINE 10 ML SDV (SCHEDULED) IV SCH ×2 (13:20→22:09)
[2017-09-07] MEDS: DAPTOMYCIN 300 MG in NORMAL SALINE 50 ML IV SCH (15:10)
--- NOTE | 2017-09-07 16:57 | PDOC PROGRESS REPORT ---
Subjective Subjective:: Patient states pain is minimal but still has difficulty fully straightening her elbow. She denies fever chills or sweats. Physical Exam Vital Signs: Temp Pulse Resp BP Pulse Ox 97.9 F 56 L 12 135/79 H 95 09/07/17 15:18 09/07/17 15:18 09/07/17 15:18 09/07/17 15:18 09/07/17 15:18 Intake & Output 09/06/17 09/07/17 09/08/17 06:59 06:59 06:59 Intake Total 1688 1540 720 Output Total 900 Balance 788 1540 720 Weight 70.1 kg Musculoskeletal exam: PRESENT: other - Right elbow: Surgical incisions healed no evidence of erythema or drainage. Minimal residual swelling. No pain with elbow range of motion. Elbow range of motion 10-greater than 150 Results Laboratory Results: 09/02/17 06:00 08/24/17 04:39 08/24/17 04:39 Creatine Kinase 40 Impressions: Elbow X-Ray 08/26/17 00:00 IMPRESSION: No fracture is seen. However, there is a joint effusion. Recommend conservative measures and repeat imaging as clinically indicated. Guidance Fluoroscopy 08/26/17 00:00 IMPRESSION: SUCCESSFUL PLACEMENT OF A 5 FR DUAL LUMEN 38 CM PICC IN THE LEFT BASILIC VEIN. Interventional Vascular Procedure 08/26/17 00:00 IMPRESSION: SUCCESSFUL PLACEMENT OF A 5 FR DUAL LUMEN 38 CM PICC IN THE LEFT BASILIC VEIN. PICC Line Insertion 08/26/17 00:00 IMPRESSION: SUCCESSFUL PLACEMENT OF A 5 FR DUAL LUMEN 38 CM PICC IN THE LEFT BASILIC VEIN. Assessment & Plan - Diagnosis (1) Septic arthritis of elbow, right Qualifiers: Septic arthritis organism: due to unspecified organism Qualified Code(s): M00.9 - Pyogenic arthritis, unspecified Is this a current diagnosis for this admission?: Yes Plan: status post arthroscopic I&D right elbow. #1 continue daptomycin IV until 09/19/17 would transition to p.o. antibiotics as outpatient for an additional 3 weeks. #2 remove sutures today. #3 patient may be weightbearing as tolerated and continue elbow range of motion. Will follow up with me as needed.
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
[2017-09-08] MEDS: METHADONE HCL 10 MG TABLET PO SCH ×3 (05:42→21:22)
[2017-09-08] MEDS: CYCLOBENZAPRINE HCL 10 MG TABLET PO PRN ×3 (05:43→21:22)
[2017-09-08] MEDS: NICOTINE 21 MG/24 HR PATCH.TD24 TD SCH (11:06)
[2017-09-08] MEDS: OXYCODONE HCL IR 5 MG TABLET PO PRN ×3 (11:06→20:07)
[2017-09-08] MEDS: NORMAL SALINE 10 ML SDV (SCHEDULED) IV SCH ×2 (11:07→21:22)
[2017-09-08] MEDS: ENOXAPARIN SODIUM INJ 40 MG/0.4 ML DISP.SYRIN SUBCUT SCH (11:08)
[2017-09-08] MEDS: DAPTOMYCIN 300 MG in NORMAL SALINE 50 ML IV SCH (15:04)
[2017-09-09] MEDS: OXYCODONE HCL IR 5 MG TABLET PO PRN ×4 (04:23→20:22)
[2017-09-09] MEDS: CYCLOBENZAPRINE HCL 10 MG TABLET PO PRN ×3 (05:10→21:53)
[2017-09-09] MEDS: METHADONE HCL 10 MG TABLET PO SCH ×3 (05:10→21:45)
[2017-09-09] MEDS: NORMAL SALINE 10 ML SDV (SCHEDULED) IV SCH ×2 (10:59→21:47)
[2017-09-09] MEDS: ENOXAPARIN SODIUM INJ 40 MG/0.4 ML DISP.SYRIN SUBCUT SCH (11:00)
[2017-09-09] MEDS: NICOTINE 21 MG/24 HR PATCH.TD24 TD SCH (11:00)
[2017-09-09] MEDS ORDERED: LORAZEPAM 1 MG TABLET PO PRN (14:38)
[2017-09-09] MEDS: DAPTOMYCIN 300 MG in NORMAL SALINE 50 ML IV SCH (16:12)
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
[2017-09-10] MEDS: OXYCODONE HCL IR 5 MG TABLET PO PRN ×4 (01:06→20:45)
[2017-09-10] MEDS: METHADONE HCL 10 MG TABLET PO SCH ×3 (06:12→23:16)
[2017-09-10] MEDS: CYCLOBENZAPRINE HCL 10 MG TABLET PO PRN ×2 (09:14→17:16)
[2017-09-10] MEDS: ENOXAPARIN SODIUM INJ 40 MG/0.4 ML DISP.SYRIN SUBCUT SCH (09:14)
[2017-09-10] MEDS: NICOTINE 21 MG/24 HR PATCH.TD24 TD SCH (09:14)
[2017-09-10] MEDS: NORMAL SALINE 10 ML SDV (SCHEDULED) IV SCH ×2 (09:14→23:18)
[2017-09-10] MEDS: DAPTOMYCIN 300 MG in NORMAL SALINE 50 ML IV SCH (17:16)
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
[2017-09-11] MEDS: CYCLOBENZAPRINE HCL 10 MG TABLET PO PRN (05:45)
[2017-09-11] MEDS: METHADONE HCL 10 MG TABLET PO SCH ×3 (05:45→22:08)
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
[2017-09-11] MEDS ORDERED: METHOCARBAMOL 500 MG TABLET PO ONE (11:00)
[2017-09-11] MEDS: OXYCODONE-ACETAMINOPHEN 5-325 MG TABLET PO PRN ×2 (11:13→17:59)
[2017-09-11] MEDS: NORMAL SALINE 10 ML SDV (SCHEDULED) IV SCH ×2 (11:14→22:08)
[2017-09-11] MEDS: NICOTINE 21 MG/24 HR PATCH.TD24 TD SCH (11:14)
[2017-09-11] MEDS: ENOXAPARIN SODIUM INJ 40 MG/0.4 ML DISP.SYRIN SUBCUT SCH (11:15)
[2017-09-11] MEDS ORDERED: METHOCARBAMOL 500 MG TABLET PO SCH (14:00)
[2017-09-11] MEDS: METHOCARBAMOL 500 MG TABLET PO SCH (17:59)
[2017-09-11] MEDS: DAPTOMYCIN 300 MG in NORMAL SALINE 50 ML IV SCH (18:00)
--- NOTE | 2017-09-11 19:12 | RADIOLOGY REPORT (SQ) ---
EXAM DESCRIPTION: VENOUS UNILATERAL LOWER COMPLETED DATE/TIME: 09/11/2017 5:54 pm REASON FOR STUDY: r/o DVT right leg COMPARISON: None. TECHNIQUE: Dynamic and static herrera scale and color images acquired of the right leg venous system. S elected spectral images acquired with additional compression and augmentation maneuvers. The contrala teral common femoral vein and saphenofemoral junction were also imaged. Images stored on PACS. LIMITATIONS: None. FINDINGS: COMMON FEMORAL: Normal phasicity, compression and augmentation. No visualized echogenic ma terial on herrera scale. No defects on color images. FEMORAL: Normal compression and augmentation. No visualized echogenic material on herrera scale. No defe cts on color images. POPLITEAL: Normal compression, augmentation. No visualized echogenic material on herrera scale. No defec ts on color images. CALF VESSELS: Normal compression, augmentation. No visualized echogenic material on herrera scale. No de fects on color images. GSV and SSV: Normal compression, augmentation. No visualized echogenic material on herrera scale. No def ects on color images. ANY DEEP VENOUS INSUFFICIENCY: Not evaluated. ANY EVIDENCE OF POPLITEAL CYST: No. OTHER: No other significant finding. CONTRALATERAL COMMON FEMORAL VEIN AND SAPHENOFEMORAL JUNCTION: Normal phasicity, compression and augmentation. No visualized echogenic material on herrera scale. No de fects on color images. IMPRESSION: NO EVIDENCE OF DVT OR SVT IN THE RIGHT LEG. TECHNICAL DOCUMENTATION: JOB ID: [id number] [employer]- All Rights Reserved
[2017-09-12] MEDS: METHOCARBAMOL 500 MG TABLET PO SCH ×4 (00:20→17:03)
[2017-09-12] MEDS: KETOROLAC TROMETHAMINE 10 MG TABLET PO PRN ×3 (00:21→16:52)
[2017-09-12] MEDS: ACETAMINOPHEN 325 MG TABLET PO PRN (01:54)
[2017-09-12] MEDS: METHADONE HCL 10 MG TABLET PO SCH ×3 (07:20→22:15)
[2017-09-12] MEDS: ENOXAPARIN SODIUM INJ 40 MG/0.4 ML DISP.SYRIN SUBCUT SCH (09:31)
[2017-09-12] MEDS: NICOTINE 21 MG/24 HR PATCH.TD24 TD SCH (09:33)
[2017-09-12] MEDS: NORMAL SALINE 10 ML SDV (SCHEDULED) IV SCH ×2 (09:34→22:15)
[2017-09-12] MEDS: NORMAL SALINE 10 ML SDV (AFTER EACH USE) IV PRN ×2 (09:34→16:20)
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
[2017-09-12] MEDS: DAPTOMYCIN 300 MG in NORMAL SALINE 50 ML IV SCH (15:15)
[2017-09-13] MEDS: KETOROLAC TROMETHAMINE 10 MG TABLET PO PRN ×3 (00:25→19:10)
[2017-09-13] MEDS: METHOCARBAMOL 500 MG TABLET PO SCH ×4 (00:25→19:10)
[2017-09-13] MEDS: ACETAMINOPHEN 325 MG TABLET PO PRN ×5 (01:26→22:57)
[2017-09-13] MEDS: METHADONE HCL 10 MG TABLET PO SCH ×3 (06:25→22:50)
[2017-09-13 06:53] LABS: HEMATOCRIT 29.9 % (36.0-47.0); HEMOGLOBIN 10.1 g/dL (12.0-15.5); HGB HCT DIFFERENCE 0.4; MEAN CORPUSCULAR HEMOGLOBIN 28.5 pg (27.0-33.4); MEAN CORPUSCULAR HGB CONC 33.8 g/dL (32.0-36.0); MEAN CORPUSCULAR VOLUME 84 fl (80-97); RED BLOOD COUNT 3.55 10^6/uL (3.72-5.28); RED CELL DISTRIBUTION WIDTH 14.1 % (11.5-14.0); WHITE BLOOD COUNT 6.7 10^3/uL (4.0-10.5)
[2017-09-13 07:04] LABS: ANION GAP 8 (5-19); BLOOD UREA NITROGEN 16 mg/dL (7-20); CALCIUM 8.7 mg/dL (8.4-10.2); CARBON DIOXIDE 28 mmol/L (22-30); CHLORIDE 105 mmol/L (98-107); CREATININE RESULT 0.71 mg/dL (0.52-1.25); GLUCOSE 84 mg/dL (75-110); POTASSIUM 4.3 mmol/L (3.6-5.0)
[2017-09-13] MEDS: ENOXAPARIN SODIUM INJ 40 MG/0.4 ML DISP.SYRIN SUBCUT SCH (10:43)
[2017-09-13] MEDS: NORMAL SALINE 10 ML SDV (SCHEDULED) IV SCH ×2 (10:45→22:50)
[2017-09-13] MEDS: NICOTINE 21 MG/24 HR PATCH.TD24 TD SCH (10:47)
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
[2017-09-13] MEDS: DAPTOMYCIN 300 MG in NORMAL SALINE 50 ML IV SCH (16:56)
[2017-09-14] MEDS: METHOCARBAMOL 500 MG TABLET PO SCH ×2 (00:11→06:12)
[2017-09-14] MEDS: METHADONE HCL 10 MG TABLET PO SCH ×3 (06:10→21:24)
[2017-09-14] MEDS: ACETAMINOPHEN 325 MG TABLET PO PRN ×2 (06:12→09:45)
[2017-09-14] MEDS: NORMAL SALINE 10 ML SDV (SCHEDULED) IV SCH ×2 (09:44→21:25)
[2017-09-14] MEDS: ENOXAPARIN SODIUM INJ 40 MG/0.4 ML DISP.SYRIN SUBCUT SCH (09:45)
[2017-09-14] MEDS: NICOTINE 21 MG/24 HR PATCH.TD24 TD SCH (09:53)
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
[2017-09-14] MEDS: METHOCARBAMOL 750 MG TABLET PO SCH ×3 (15:48→21:24)
[2017-09-14] MEDS: DAPTOMYCIN 300 MG in NORMAL SALINE 50 ML IV SCH (15:49)
[2017-09-14 16:35] LABS: ALANINE AMINOTRANSFERASE 304 U/L (9-52); ALBUMIN 3.3 g/dL (3.5-5.0); ALKALINE PHOSPHATASE 270 U/L (38-126); ASPARTATE AMINO TRANSFERASE 211 U/L (14-36); BILIRUBIN,DIRECT 0.3 mg/dL (0.0-0.4); BILIRUBIN,TOTAL 0.3 mg/dL (0.2-1.3); TOTAL PROTEIN 6.6 g/dL (6.3-8.2)
[2017-09-14] MEDS: KETOROLAC TROMETHAMINE 10 MG TABLET PO PRN (21:24)
[2017-09-15] MEDS: KETOROLAC TROMETHAMINE 10 MG TABLET PO PRN ×3 (06:26→21:02)
[2017-09-15] MEDS: METHADONE HCL 10 MG TABLET PO SCH ×3 (06:26→21:02)
[2017-09-15] MEDS: NICOTINE 21 MG/24 HR PATCH.TD24 TD SCH (11:18)
[2017-09-15] MEDS: METHOCARBAMOL 750 MG TABLET PO SCH ×4 (11:24→21:02)
[2017-09-15] MEDS: NORMAL SALINE 10 ML SDV (SCHEDULED) IV SCH ×2 (11:24→21:03)
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
[2017-09-15] MEDS: LIDOCAINE 5% (700 MG) TRANSDERMAL ADH..PATCH TP SCH (12:23)
[2017-09-15] MEDS: ENOXAPARIN SODIUM INJ 40 MG/0.4 ML DISP.SYRIN SUBCUT SCH (12:24)
--- NOTE | 2017-09-15 13:48 | EKG REPORT ---
SEVERITY:- ABNORMAL ECG - SINUS RHYTHM NONSPECIFIC INTRAVENTRICULAR CONDUCTION DELAY PROBABLE LEFT VENTRICULAR HYPERTROPHY NONSPECIFIC ST-T CHANGES ANTERIOR WALL. : Confirmed by: Chance Clements MD 15-Sep-2017 13:48:27
[2017-09-15] MEDS: DAPTOMYCIN 300 MG in NORMAL SALINE 50 ML IV SCH (16:25)
[2017-09-16] MEDS: KETOROLAC TROMETHAMINE 10 MG TABLET PO PRN ×3 (03:06→17:29)
[2017-09-16] MEDS: METHADONE HCL 10 MG TABLET PO SCH ×3 (05:16→23:33)
[2017-09-16 06:33] LABS: PROTHROMBIN TIME 13.2 SEC (11.4-15.4)
[2017-09-16 06:42] LABS: ALANINE AMINOTRANSFERASE 242 U/L (9-52); ALBUMIN 3.1 g/dL (3.5-5.0); ALKALINE PHOSPHATASE 214 U/L (38-126); ANION GAP 11 (5-19); ASPARTATE AMINO TRANSFERASE 157 U/L (14-36); BILIRUBIN,DIRECT 0.3 mg/dL (0.0-0.4); BILIRUBIN,TOTAL 0.5 mg/dL (0.2-1.3); BLOOD UREA NITROGEN 7 mg/dL (7-20); CALCIUM 9.1 mg/dL (8.4-10.2); CARBON DIOXIDE 23 mmol/L (22-30); CHLORIDE 105 mmol/L (98-107); CREATININE RESULT 0.56 mg/dL (0.52-1.25); GLUCOSE 83 mg/dL (75-110); SODIUM 138.5 mmol/L (137-145); TOTAL PROTEIN 6.5 g/dL (6.3-8.2)
[2017-09-16] MEDS: METHOCARBAMOL 750 MG TABLET PO SCH ×4 (11:06→23:33)
[2017-09-16] MEDS: LIDOCAINE 5% (700 MG) TRANSDERMAL ADH..PATCH TP SCH (11:11)
[2017-09-16] MEDS: NORMAL SALINE 10 ML SDV (SCHEDULED) IV SCH ×2 (11:11→23:33)
[2017-09-16] MEDS: NICOTINE 21 MG/24 HR PATCH.TD24 TD SCH (11:12)
[2017-09-16] MEDS: ENOXAPARIN SODIUM INJ 40 MG/0.4 ML DISP.SYRIN SUBCUT SCH (11:12)
[2017-09-16] MEDS ORDERED: LIDOCAINE 5% (700 MG) TRANSDERMAL ADH..PATCH TP SCH (11:49)
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
[2017-09-16] MEDS: DAPTOMYCIN 300 MG in NORMAL SALINE 50 ML IV SCH (17:20)
[2017-09-16 20:47] VITALS: BP 107/82
--- NOTE | 2017-09-17 09:14 | PDOC DISCHARGE SUMMARY ---
General - Admit/Disc Date/PCP Admission Date/Primary Care Provider: 08/22/17 08:05 Discharge Date: 09/17/17 - Discharge Diagnosis (1) Endocarditis Is this a current diagnosis for this admission?: Yes Summary: The patient left AGAINST MEDICAL ADVICE last evening. She left without the nurses being aware of this. She does have a PICC line in place. We have not been able to contact her. She was competent to make this decision. She had 4 days left of antibiotic therapy. (2) MRSA bacteremia Is this a current diagnosis for this admission?: Yes - Additional Information Resuscitation Status: Full Code Home Medications: Albuterol Sulfate [Proair HFA Inhalation Aerosol 8.5 gm MDI] 2 puff IH Q4HP PRN 08/22/17 History of Present Illness History of Present Illness: LORRAINE VILLAGOMEZ is a 21 year old female Hospital Course Hospital Course: Patient left AGAINST MEDICAL ADVICE. She eloped with her PICC line in place. I have been unable to contact her. Physical Exam Vital Signs: Temp Pulse Resp BP Pulse Ox 98.4 F 115 H 14 107/82 99 09/16/17 20:08 09/16/17 20:08 09/16/17 20:08 09/16/17 20:47 09/16/17 20:08 Intake & Output 09/16/17 09/17/17 09/18/17 06:59 06:59 06:59 Intake Total 2072 770 Balance 2072 770 Weight 73.6 kg Results Laboratory Results: 09/13/17 06:36 09/16/17 05:25 08/24/17 09/15/17 04:39 14:00 Creatine Kinase 40 35 Impressions: Elbow X-Ray 08/26/17 00:00 IMPRESSION: No fracture is seen. However, there is a joint effusion. Recommend conservative measures and repeat imaging as clinically indicated. Guidance Fluoroscopy 08/26/17 00:00 IMPRESSION: SUCCESSFUL PLACEMENT OF A 5 FR DUAL LUMEN 38 CM PICC IN THE LEFT BASILIC VEIN. Interventional Vascular Procedure 08/26/17 00:00 IMPRESSION: SUCCESSFUL PLACEMENT OF A 5 FR DUAL LUMEN 38 CM PICC IN THE LEFT BASILIC VEIN. PICC Line Insertion 08/26/17 00:00 IMPRESSION: SUCCESSFUL PLACEMENT OF A 5 FR DUAL LUMEN 38 CM PICC IN THE LEFT BASILIC VEIN. Venous Doppler Study 09/11/17 00:00 IMPRESSION: NO EVIDENCE OF DVT OR SVT IN THE RIGHT LEG. Qualifiers PATEINT BEING DISCHARGED WITH ANY OF THE FOLLOWING DIAGNOSIS?: No Plan Time Spent: Less than 30 Minutes
== END 2017-09-17 00:19 | disposition left against medical advice (07) | DRG 988 ==
LOC: ER 07:59 → 4N 08:05
PROVIDERS: ADMIT Internal Medicine; ATTEND Internal Medicine
PROC: 02HV33Z Insertion of Infusion Device into Superior Vena Cava, Percutaneous Approach (ICD-10-PCS; 2017-08-26)
PROC: B518ZZA Fluoroscopy of Superior Vena Cava, Guidance (ICD-10-PCS; 2017-08-26)
PROC: B548ZZA Ultrasonography of Superior Vena Cava, Guidance (ICD-10-PCS; 2017-08-26)
PROC: 0R9L3ZX Drainage of Right Elbow Joint, Percutaneous Approach, Diagnostic (ICD-10-PCS; 2017-08-27)
PROC: 0R9 Upper Joints, Drainage (ICD-10-PCS; 2017-08-28)
PROC: 0RBL4ZZ Excision of Right Elbow Joint, Percutaneous Endoscopic Approach (ICD-10-PCS; principal; 2017-08-28 08:00)
DX: I33.0 Acute and subacute infective endocarditis (principal); M00.9 Pyogenic arthritis, unspecified; R78.81 Bacteremia; F19.90 Other psychoactive substance use, unspecified, uncomplicated; B95.62 Methicillin resistant Staphylococcus aureus infection as the cause of diseases classified elsewhere; B19.20 Unspecified viral hepatitis C without hepatic coma; S22.069D Unspecified fracture of T7-T8 vertebra, subsequent encounter for fracture with routine healing; S22.079D Unspecified fracture of T9-T10 vertebra, subsequent encounter for fracture with routine healing; S32.019D Unspecified fracture of first lumbar vertebra, subsequent encounter for fracture with routine healing; S32.029D Unspecified fracture of second lumbar vertebra, subsequent encounter for fracture with routine healing; S32.19XD Other fracture of sacrum, subsequent encounter for fracture with routine healing; V49.9XXD Car occupant (driver) (passenger) injured in unspecified traffic accident, subsequent encounter; Z87.891 Personal history of nicotine dependence; Z76.5 Malingerer [conscious simulation]
CPT/HCPCS: 01740; 36415; 36569; 76937; 77001; 80048; 80053; 80076; 82550; 82565; 83735; 84100; 84703; 85025; 85027; 85610; 85652; 87040; 87070; 87075; 87205; 89050; 89060; 93005; 93010; 93971; J0878; J1100; J1642; J1650; J1885; J2250; J2405; J2704; J2765; J3010; J3490